=== PATIENT | female | born 1985 | race Caucasian/White ===

== ENCOUNTER → 2017-04-14 | Outpatient (CLI) | payer MEDICAID | END | disposition home or self-care (01) | LOC: RAD 16:18 | PROVIDERS: ATTEND Obstetrics & Gynecology | DX: Z36.3 Encounter for antenatal screening for malformations (principal); Z3A.19 19 weeks gestation of pregnancy | CPT/HCPCS: 76805 ==

== ENCOUNTER 2017-05-02 15:54 | Outpatient (CLI) | payer MEDICAID ==
[2017-05-02 17:08] LABS: AMNISURE NEGATIVE (NEGATIVE)
[2017-05-02 17:09] LABS: AMNI OBC PASS
== END 2017-05-02 18:00 | disposition home or self-care (01) ==
LOC: LDOP 15:54
PROVIDERS: ATTEND Obstetrics & Gynecology
DX: O42.912 Preterm premature rupture of membranes, unspecified as to length of time between rupture and onset of labor, second trimester (principal); O32.1XX0 Maternal care for breech presentation, not applicable or unspecified; Z3A.21 21 weeks gestation of pregnancy
CPT/HCPCS: 59025; 76815; 84112; 89060; 99201; G0463; Q0114

== ENCOUNTER 2017-07-13 14:16 | Outpatient (CLI) | payer MEDICAID ==
[~2017-07-13] VITALS: Ht 170.2 cm; Wt 77.3 kg
[2017-07-13 14:24] VITALS: BP 99/61
[2017-07-13] MEDS ORDERED: HYDROXYZINE PAMOATE 50MG CAP PO ONE (15:11)
[2017-07-13] MEDS ORDERED: PREN1TAB60 PO (15:30)
[2017-07-13 15:37] LABS: MICROSCOPIC NOT IND
[2017-07-13] MEDS ORDERED: TERBUTALINE 1 MG/ML, 1ML SQ ONE (15:41)
[2017-07-13] MEDS ORDERED: TERBUTALINE 1 MG/ML, 1ML ONE (15:44)
[2017-07-13] MEDS ORDERED: niFEDipine ER 60 MG TABLET.ER PO ONE (17:22)
[2017-07-13] MEDS ORDERED: niFEDipine ER 60 MG TABLET.ER PO STA (17:24)
== END 2017-07-13 17:34 | disposition home or self-care (01) ==
LOC: LDOP 14:16
PROVIDERS: ATTEND Obstetrics & Gynecology
DX: O26.893 Other specified pregnancy related conditions, third trimester (principal); R10.9 Unspecified abdominal pain; Z3A.33 33 weeks gestation of pregnancy
CPT/HCPCS: 59025; 81003; 96372; 99211; J3105; G0463